=== PATIENT | female | born 1955 | race Caucasian/White ===

== ENCOUNTER 2016-12-28 11:42 | Day surgery (SDC) | payer OTHER ==
[~2016-12-28] VITALS: Ht 162.6 cm; Wt 72.0 kg
[2016-12-28] VITALS (11 sets, daily range): BP systolic 104–131; BP diastolic 60–77; PULSE 60–78; RESP 10–20; O2SAT 95–99
[~2016-12-28 11:42] MED LIST: EPIN0.3P2 IJ; LORA10CA9 PO; Lactated Ringer's 1,000 ML IV SCH; MENT118G TP; NPR500T PO
[2016-12-28] MEDS ORDERED: Propofol 10,000 mCg/mL 20 mL Inj ONE (11:43)
[2016-12-28] MEDS ORDERED: Dexamethasone 4 mg/mL Inj ONE (11:43)
[2016-12-28] MEDS ORDERED: Ondansetron 2 mg/mL 2 mL Inj ONE (11:43)
[2016-12-28] MEDS ORDERED: fentaNYL-PF 50 mCg/mL 2 mL Inj ONE (11:43)
[2016-12-28] MEDS ORDERED: Lactated Ringer's 1,000 ML IV ONE (12:28)
[2016-12-28] MEDS ORDERED: Lactated Ringer's 500 ML IV PRN (13:57)
[2016-12-28] MEDS ORDERED: Lactated Ringer's 1,000 ML IV SCH (13:57)
--- NOTE | 2016-12-28 13:59 | PCM.HPANE ---
Patient Data Surgeon Admitting Provider: Attending Provider:Paulo Doan DO Primary Care Physician:Nicole Johnston Other Provider:Caitlyn Corea Anesthesia Reason for Visit Left Knee Medial Meniscus Tear Ht/WT & BMI Height (Feet): 5 Height (Inches): 4 Weight (Kilograms): 71.94 Body Mass Index 27.00 Allergies Coded Allergies: latex (Verified Allergy, Severe, SWELLING,BUMPS, 03/11/09) povidone (Verified Allergy, Unknown, ?, 03/11/09) Uncoded Allergies: Latex (Allergy, Severe, SWELLING,BUMPS, 06/01/04) BANANAS (Allergy, Unknown, 12/21/16) BEE STINGS (Allergy, Unknown, 12/21/16) Povidone (Allergy, Unknown, ?, 06/01/04) Past Anesthesia History Anesthesia History: Denies:: Abnormal Airway, Anesthesia Reactions, Difficult Intubation, Fam Anesthesia Reaction, Fam Malignant Hypertherm, Malignant Hyperthermia Diabetes History Hx Diabetes?: No MRSA MRSA: No Medications Reported Medications Naproxen 500 Mg [id number] Mg PO BID PRN For Pain Ref 0 12/21/16 Loratadine 10 Mg [id number] Mg PO PRN For Congestion 12/21/16 Epinephrine (Epipen 2-Allan)0.3 Mg/0.3 Ml Auto.injct0.3 Mg IJ PRN For Anaphyllaxis 12/21/16 Menthol (Biofreeze)118 Ml Gel..ml.118 Ml TP DAILY 12/21/16 History History of ENT Problems?: No HEENT History: Positive for:: TMJ (hx of tmj surgery) Denies:: Abnormal Airway Difficult Intubation Hearing Problem Denture Type: None Teeth Condition: Within Normal Limits Hx of Heart Problems?: No Cardiovascular History: Positive for:: Hypertension Valvular Heart Disease Denies:: Atrial Fibrillation Chest Pain Other History/Comments No CP; no hx TX Hx of Respiratory Problem?: No Respiratory History: Denies:: Asthma COPD Oxygen Administration Use of C-PAP Machine Hx Neurologic Problems?: No Neurological History: Denies:: CVA Hx of GI Problems?: Yes Hx of Problems?: No Female Hx: Denies:: Currently (hysterectomy) Hx Musculoskeletal Problems?: Yes Musculoskeletal History: Positive for:: Back Injury (prior hx 2 lumbar back surgeries) Degenerative Joint Musculoskeletal Trauma (left knee current admission problem) Osteoarthritis Hx of Psycho/Social Problems?: No Hx Surgeries?: Yes (back surgery x 2, c sections, tmj surgery, dinora, angela-bso) Hx Any Other Health Problems?: Yes Other History: Denies:: Cancer Thyroid Disease Hx Diabetes: No Hx Alcohol Use: YesHave You Smoked inLast 12 mo: Yes Stop/Bang S-Snoring: Do You Snore Loudly: No T-Tired: feel tired, fatigued: Yes O-Obsered: Observed not breath: No P-Blood Pressure: treated: No B- Body Mass Index > 35 kg/m2: No A- Age over 50: Yes N- Neck Large Circumference: No G- Gender Male: No MIC Total Score: 2 Risk Assessment Category Category 1A: Patient has history of documented sleep apnea, and HAS NOT received any narcotic, sedative or anesthesia administration during this stay. Category 1B: Patient has history of documented sleep apnea, and HAS received any narcotic , sedative or anesthesia administration during this stay Category 2: Patient has SUSPECTED Obstructive Sleep Apnea, and HAS received any narcotic , sedative or anesthesia administration during this stay. Category 3: Patient has SUSPECTED Obstructive Sleep Apnea and HAS NOT received narcotic, sedative or anesthesia administration during this stay. Category 4: Outpatient in Procedural Areas with known sleep apnea or who screen positive for High Risk via the STOP/BANG questionnaire. Exam Exam General Appearance: Alert, Oriented X3 HEENT/AIRWAY: MP 2, Neck Movement (FROM) Lungs: Clear to Auscultation, Clear to Percussion Heart: Exam Unremarkable, Regular Rate/Rhythm Plan Impression Patient chart reviewed, patient interviewed and anesthestic plan with risks, benefits, and alternatives discussed, and informed consent obtained. ASA Physical Status: ASA2 Mod Systemic Disease Anesthetic Plan: GA Bene/Risks/Altern/Consents: Yes HP Complete Prior to Induction: Yes Josue Veras MD Dec 28, 2016 11:23
[2016-12-28] MEDS ORDERED: EPHEDrine Sulfate 50 mg/mL Inj IVPUSH PRN (14:00)
[2016-12-28] MEDS ORDERED: Atropine 0.4 mg/mL Inj IVPUSH PRN (14:00)
[2016-12-28] MEDS ORDERED: Phenylephrine 10,000 mCg/mL Inj IVPUSH PRN (14:00)
[2016-12-28] MEDS ORDERED: Labetalol 5 mg/mL 20 mL Inj IV PRN (14:00)
[2016-12-28] MEDS ORDERED: MetoCLOpramide 5 mg/mL 2 mL Inj IVPUSH PRN (14:00)
[2016-12-28] MEDS ORDERED: Ondansetron 2 mg/mL 2 mL Inj IVPUSH PRN (14:00)
[2016-12-28] MEDS ORDERED: fentaNYL-PF 50 mCg/mL 2 mL Inj IVPUSH PRN (14:00)
[2016-12-28] MEDS ORDERED: Lidocaine 2%-Epi 1:100,000 20 mL Inj NERVEBLOCK ONE (14:04)
[2016-12-28] MEDS ORDERED: Ropivacaine-PF 0.5% 30 mL Inj INFILTRATE ONE (14:05)
[2016-12-28] MEDS: HYDROmorphone 1 mg/mL Inj IVPUSH PRN ×2 (14:41→14:47)
--- NOTE | 2016-12-28 14:57 | PCM.ANEP1 ---
Post Anesthesia PACU Phase 1 Assessment Vital Signs Vital Signs Date Time Temp Pulse Resp B/P Pulse Ox O2 Delivery O2 Flow Rate FiO2 12/28/16 14:50 36.6 63 11 131/77 97 Room Air 12/28/16 14:45 67 10 122/70 96 Room Air 12/28/16 14:40 71 13 113/72 95 Room Air 12/28/16 14:35 70 12 115/64 98 Room Air 12/28/16 14:30 68 12 118/67 99 Simple Mask 8 12/28/16 14:28 36.0 72 13 123/77 99 Simple Mask 8 12/28/16 12:26 36.5 78 16 120/70 97 Room Air Anesthetic Administered: GA Level of Alertness: Awake, talking WATT's with Equal Strength: Yes Pain: No Nausea or Vomiting: No CV Function & Hydration Stable: Yes Airway Device: Oxygen Delivery: Simple Mask Lungs: Clear to Auscultation, Clear to Percussion PACU Phase 2 Assessment Complications: No Follow up Care: No Patient Instructions Provided: N/A Comments See anesth record for PACU VS. PACU VSS Josue Veras MD Dec 28, 2016 14:57
--- NOTE | 2016-12-28 15:05 | OP ---
[address] [address] OPERATIVE REPORT PATIENT: ANDREA ROBERTS : 1955 MR#: [id number] ADMIT: 12/28/2016 JOB ID: [id number] DATE OF SURGERY: 12/28/2016 PREOPERATIVE DIAGNOSIS(ES): Left knee torn medial meniscus. 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 PROCEDURE: 1. Left knee video arthroscopy. 2. Partial medial meniscectomy. SURGEON: Paulo Doan D.O. ANESTHESIA: General. INDICATIONS: The patient is a 61-year-old female who injured her left knee while moving a heavy safe on wheels while working at [employer]. She has failed prolonged conservative therapy and wished to proceed with a knee arthroscopy. We discussed the risks, benefits, and possible complications of surgery including, but not limited to injury to nerves and vessels, infection, bleeding, incomplete relief of symptoms, stiffness, need for additional procedures. The patient had good understanding. All questions were answered and she wished to proceed. PROCEDURE IN DETAIL: The patient was brought to the operating room. She was given a preoperative general anesthetic and the left lower extremity was sterilely prepped and draped. An incision was made over the anterolateral knee at the level of the joint line and the blunt trocar was introduced into the knee. Inspection was undertaken. She was found to have a tear in the medial meniscus and some degenerative chondromalacia fairly mild C2 type changes in the femur and the tibia. Her meniscal tear was resected back to a stable base with a combination of biters and shaver. Her ACL was found to be intact. Her lateral compartment was in excellent condition without meniscal pathology. Her patellofemoral joint had some synovitis and chondromalacia, C3 changes in the femur as well as the patella. I did a gentle chondroplasty with removing loose cartilaginous pieces and removing some of the synovitis in this area. The scope was then removed. The portals were closed with interrupted nylon suture. Naropin was added as an adjunct local anesthetic. Sterile dressings were applied. Patient tolerated the procedure well. BLOOD LOSS: Was minimal. POSTOPERATIVE PROTOCOL: Have the patient weightbear to tolerance using crutches for ambulation. Ice and elevate and followup in two weeks or sooner if needed. She was given a prescription for Percocet to use as needed for pain postoperatively.
[2016-12-28] MEDS: oxyCODONE-Acetamin 5-325 mg Tablet PO PRN ×2 (15:30→16:00)
== END 2016-12-28 23:59 | disposition home or self-care (01) ==
LOC: SAS 11:42 → MERGE 13:15 → SAS 23:59
PROVIDERS: ATTEND Orthopaedic Surgery
DX: S83.242D Other tear of medial meniscus, current injury, left knee, subsequent encounter (principal); M26.609 Unspecified temporomandibular joint disorder, unspecified side; I10 Essential (primary) hypertension; I38 Endocarditis, valve unspecified; X58.XXXA Exposure to other specified factors, initial encounter; Y92.9 Unspecified place or not applicable; Z79.899 Other long term (current) drug therapy
CPT/HCPCS: 29881; J1100; J1170; J1885; J2405; J2704; J2765; J2795; J3010; J7120